=== PATIENT | male | born 1980 | race Caucasian/White ===

== ENCOUNTER 2022-12-09 11:10 | Outpatient (AMB) | payer BC, SELFPAY ==
[2022-12-09 11:18] VITALS: BP 126/78; PULSE 78; RESP 16; TEMP 36.9; O2SAT 97; BMI 30.7
--- NOTE | 2022-12-09 11:18 | MHC.PC.OV ---
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 Allergies No Known Allergies Allergy (Verified 12/09/22 11:52) Medication List - Last Reconciled 12/09/22 by Deann Wyman CNP No Known Home Meds Tobacco use date assessed: 12/09/22 Dental Screening Dental Screen Date: 12/09/22 Did you have a dental visit in the last 12 months?: Yes Did you have a dental problem in the last 6 months where you did not have access to dental care?: No Was dental information given to patient?: Patient has dentist HPI HPI Comments History of Present Illness Details 42-year-old male presents to [facility] care. He notes he was last evaluated by his former PCP 4 years ago. His last blood work was 8-9 years ago. He denies significant PMH He reports right knee pain since August. He notes that he was putting on his shoe when he suddenly experienced a burning sensation to his lateral right knee; the pain migrated to the patellar region. He was seen by [place] [facility] earlier this month, x-ray was negative, MRI was recommended, and he is awaiting MRI coverage approval from his health plan. He notes he was also evaluated for right shoulder pain. He reports intermittent non-itchy rash to his chest for the past 2 years; usually responsive to hydrocortisone cream. He notes that he drinks 5-6 beers or wine 5 days weekly. He has maintained this drinking habit for approximately 20 years. He notes he quit smoking cigarette 5-6 years ago. He notes he smoked 10 cigarette daily for 20 years. He notes he smokes and consume edible marijuana. 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 Surgical History (Updated 12/09/22 @ 11:27 by Sintia Jolly [facility]) History of surgical removal of pilonidal cyst Family History (Updated 12/09/22 @ 11:30 by Sintia Jolly CMA) Father FHx: total knee replacement History of hip replacement Maternal Grandmother Substance abuse Social History (Updated 12/09/22 @ 11:32 by Sintia Jolly CMA) Household Members: Spouse and Children Housing: House Alcohol intake: current Patient Tobacco Use Status: Former Tobacco user e-Cigarette/Vaping Use: Former Use Special zhanna needs: No service: No Current occupational status: employed 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 Vision needs: Yes (patient wears glasses) Questionnaire PHQ-9 Over the last 2 weeks, how often have you been bothered by any of the following problems? 1. Little interest or pleasure in doing things: not at all 2. Feeling down, depressed, or hopeless: not at all 3. Trouble falling or staying asleep, or sleeping too much: more than half the days 4. Feeling tired or having little energy: several days 5. Poor appetite or overeating: not at all 6. Feeling bad about yourself - or that you are a failure or have let yourself or your family down: not at all 7. Trouble concentrating on things, such as reading the newspaper or watching television: not at all 8. Moving or speaking so slowly that other people could have noticed. Or the opposite - being so fidgety or restless that you have been moving around a lot more than usual: not at all 9. Thoughts that you would be better off or of hurting yourself in some way: not at all Total score: 3 Depression Screening Interpretation: Negative Source: Developed by Drs. Charli Paz, Danette Lemon, Ramsey Thompson and colleagues, with an educational leti from [employer]. Thrive Questionnaire I am a: Patient What is your living situation today?: I have a steady place to live Within the past 12 months, did the food you bought not last and you didn't have the money to get more?: Never true Within the past 12 months, did you worry whether your food would run out before you got money to buy more?: Never true Do you have trouble paying for medicines?: No Do you have trouble getting transportation to medical appointments?: No Do you have trouble paying your heating and electricity bill?: No Do you have trouble taking care of your child, family member or friend?: No Do you have trouble with day-to-day activities such as bathing, preparing meals, shopping, managing finances, etc.?: No Are you currently unemployed and looking for a job?: No Are you interested in more education?: No AUDIT C Alcohol Use Questionnaire (AUDIT-C) 1. How often do you have a drink containing alcohol?: 4 or more times a week 2. How many drinks containing alcohol do you have on a typical day when you are drinking?: 5 or 6 3. How often do you have six or more drinks on one occasion?: Monthly Total Score: 8 Score Reviewed/Action Taken: Yes SASHA-7 AMB Questionnaire SASHA-7 Date SASHA - 7 assessed: 12/09/22 Feeling nervous, anxious, or on edge: 1 = Several days Not being able to stop or control worryin = Not at all Worrying too much about different things: 3 = Nearly every day Trouble relaxin = Not at all Being so restless that it is hard to sit still: 0 = Not at all Becoming easily annoyed or irritable: 0 = Not at all Feeling afraid as if something awful might happen: 0 = Not at all Total SASHA-7 score (0-4 normal; 5-9 mild; 10-14 moderate; 15-21 severe): 4 Source: Developed by Drs. Charli Paz, Danette Lemon, Ramsey Thompson and colleagues, with an educational leti from [employer]. Review of Systems Const Details: Denies chills, Denies fatigue, Denies fever(s), Denies headache(s) and Denies weakness HEENT Denies change in vision, Denies dizziness, Denies headache(s), Denies hearing loss, Denies nasal congestion, Denies sinus pain, Denies sinus pressure and Denies sore throat Card Denies chest pain, Denies lightheadedness, Denies dyspnea and Denies other (palpitations) Resp Denies cough, Denies dyspnea and Denies wheezing GI Denies abdominal pain, Denies melena, Denies hematochezia, Denies change in bowel habits, Denies dyspepsia and Denies nausea Denies hematuria and Denies dysuria Musc Reports right knee pain, Denies abnormal gait, Denies numbness and Denies tingling Skin/Breast Reports rash, Denies unusual bruising and Denies wounds Neuro Denies abnormal gait, Denies dizziness, Denies headache(s), Denies memory loss, Denies numbness, Denies Sensory deficit (Neuro), Denies tingling and Denies weakness Psych Denies anxiety, Denies depression and Denies memory loss Endo Denies cold intolerance, Denies fatigue, Denies heat intolerance, Denies polydipsia and Denies polyuria Dewayne/Lymph Denies easy bleeding and Denies easy bruising Aller/Immun Denies wheezing Physical exam (Primary Care) Vital Signs: Last Vital Signs Temp 98.4 F 12/09/22 11:18 Pulse 78 12/09/22 11:18 Resp 16 12/09/22 11:18 BP 126/78 12/09/22 11:18 Pulse Ox 97 12/09/22 11:18 Oxygen Delivery Method Room Air 12/09/22 11:18 BMI result Body Mass Index 30.7 Tobacco/Smoking Status: Tobacco use Status Tobacco use date assessed 12/09/22 12/09/22 11:43 Patient Tobacco Use Status Former Tobacco user 12/09/22 11:43 e-Cigarette/Vaping Use Former Use 12/09/22 11:43 PHQ-9: PHQ-9 Score PHQ-9: Total score 3 12/09/22 12:07 Depression Screening Interpretation: Negative Const Other: General: no acute distress, well developed, alert and awake Nutritional Appearance: well nourished Orientation/consciousness: patient oriented x3 HENMT Head: Yes normocephalic and Yes atraumatic Ears: hearing grossly normal bilaterally and TM's normal bilaterally General nose exam: Normal external nose present and Normal nares present Mouth: Normal oral and palatal mucosa present and moist mucous membranes Teeth and gingiva: dentition normal Throat: Yes oropharynx normal Eyes Pupils: Equal, round and reactive pupils present and Pupil accommodation reflex normal EOM: EOMs intact bilaterally Neck Neck: Yes normal visual inspection, Yes no lymphadenopathy and Yes trachea midline Thyroid: Thyroid normal Carotids: no bruits Lymphatic: no lymphadenopathy noted Chest Chest palpation & inspection: normal inspection of the chest Resp Effort & Inspection: normal respiratory effort Auscultation: clear to auscultation bilaterally Cardio Rate: regular rate Rhythm: regular rhythm Heart sounds: S1 normal heart sound present, S2 normal heart sound present, no gallops, no murmurs and no rubs Bruits: no abdominal aortic bruits and no carotid bruits GI Palpation (GI): No Abdominal aortic bruit present, Soft to palpation, nontender, No hepatosplenomegaly present and No Rebound tenderness present Auscultation: normal bowel sounds General: Yes no CVA tenderness Back/Spine/Pelvis Back: no CVA tenderness Cervical Spine: cervical ROM normal and No Cervical spine tenderness Thoracic/Lumbar Spine: thoraco-lumbar ROM normal, No pain with thoraco-lumbar ROM, No thoracic spinal tenderness and No lumbar spinal tenderness Skin General: warm and dry. Normal skin color. Normal skin turgor Lesions: no lesions Rashes: Localized, macular rash noted to the sternum Trauma: no lacerations or abrasions Wounds: no wounds Nails: normal Neuro General: patient oriented x3, gait normal and CN's II-XI intact bilaterally Cranial nerves: Yes Equal, round and reactive pupils present Cognition (Neuro): normal cognition Gait exam (Neuro): Normal gait present Motor exam (neuro): 5/5 motor strength present throughout Sensory Exam: No Sensory deficit (Neuro) Deep tendon reflexes (DTR's): Right patellar reflex intensity grade: 2+ and Left patellar reflex intensity grade: 2+ Extrem General: Yes normal to inspection, No edema and No calf tenderness No erythema, edema, or overt trauma to the right knee Psych Appearance: grossly normal Affect: normal affect Attitude: cooperative Thought process: Normal thought process present Assessment and Plan Assessment & Plan (1) Normal physical examination, routine: Code(s): Z00.00 - Encounter for general adult medical examination without abnormal findings Plan: No significant physical restrictions or limitations noted Advised to get fasting blood work done before next visit Follow-up in 1 month for labs review Return sooner with new or worsening symptoms Verbalized understanding and agreed with treatment plan. (2) Right knee pain: Code(s): M25.561 - Pain in right knee Plan: He reports right knee pain since August. He notes that he was putting on his shoe when he suddenly experienced a burning sensation to his lateral right knee; the pain migrated to the patellar region. He was seen by [place] [facility] earlier this month, x-ray was negative, MRI was recommended by ortho, awaiting coverage from health plan. No erythema, edema, or overt trauma to the right knee Follow-up with orthopedics as planned Return with worsening or new symptoms Verbalized understanding and agreed with treatment plan. (3) Localized macular rash: Code(s): R21 - Rash and other nonspecific skin eruption Plan: He reports intermittent non-itchy rash to his chest for the past 2 years; usually responsive to hydrocortisone cream. Localized, macular rash noted to the sternum Continue to use hydrocortisone cream as needed Dermatology referral made Follow-up with worsening or new signs and symptoms Verbalized understanding and agreed with treatment plan. (4) Alcohol dependence: Code(s): F10.20 - Alcohol dependence, uncomplicated Plan: He notes that he drinks 5-6 beers or wine 5 days weekly. He has maintained this drinking habit for approximately 20 years. Instructed on the health risk of excessive alcohol consumption and advised to limit or avoid alcohol intake. Declined referral to addiction medicine He notes he intends to limit his alcohol intake Advised to inform his PCP if he changes his mind on addiction medicine referral Verbalized understanding and agreed with treatment plan. (5) Laboratory tests ordered as part of a complete physical exam (CPE): Code(s): Z00.00 - Encounter for general adult medical examination without abnormal findings Plan: Fasting labs ordered as part of a complete physical exam. Advised to fast for at least 10 hours before getting labs drawn. May drink water Verbalized understanding and agreed with treatment plan. Orders: Orders Comprehensive [facility]. Panel Fast Today Z00.00 - Encounter for general adult medical examination without abnormal findings Lipid Panel Today Z00.00 - Encounter for general adult medical examination without abnormal findings TSH reflex Free T4 Today Z00.00 - Encounter for general adult medical examination without abnormal findings Complete Blood Count Auto Diff Today Z00.00 - Encounter for general adult medical examination without abnormal findings UA CC w/rflx Micro + Cult Today Z00.00 - Encounter for general adult medical examination without abnormal findings Referrals Dermatology Referral R21 - Rash and other nonspecific skin eruption Coding Level of Care Code New Pt Prev Care 40-64y(47630) Diagnoses Normal physical examination, routine Z00.00 Right knee pain M25.561 Localized macular rash R21 Alcohol dependence F10.20 Laboratory tests ordered as part of a complete physical exam (CPE) Z00.00
== END 2022-12-09 12:20 | disposition home or self-care (01) ==
PROVIDERS: PCP Nurse Practitioner Family; Visit Provider Nurse Practitioner Family
DX: Z00.00 Encounter for general adult medical examination without abnormal findings (principal); M25.561 Pain in right knee; R21 Rash and other nonspecific skin eruption; F10.20 Alcohol dependence, uncomplicated
CPT/HCPCS: 99386

== ENCOUNTER 2022-12-31 14:57 | Outpatient (AMB) | payer BC, SELFPAY ==
[2022-12-31 15:02] VITALS: BP 138/76; PULSE 83; RESP 12; TEMP 36.4; O2SAT 99; BMI 31.4
--- NOTE | 2022-12-31 15:02 | A.OFFPC_ITS ---
Vital Signs 12/31/22 15:02 Height 5 ft 10.5 in Weight 222 lb 4 oz BMI 31.4 BP 138/76 Blood Pressure Location Lt brachial Position Sitting Respiration 12 Pulse 83 Pulse Source Pulse Oximeter Temp 97.5 F Temp Source Temporal Artery Scan Pulse Oximetry (%) 99 Oxygen Delivery Method Room Air Intake Visit Reasons: fever nausea Intake Note: Patient states he no longer has a fever as of Tuesday. Patient states he feels a bit better than he did tue-tue. Patient states that he thought yesterday that he had gastroenteritis and would like that confirmed. Patient states that he would also like to know if he is contagious. 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 Accompanied by: Self / Same As Patient Allergies No Known Allergies Allergy (Verified 12/31/22 15:13) Medication List - Last Reconciled 12/31/22 by Deann Wyman CNP No Known Home Meds Tobacco use date assessed: 12/09/22 Dental Screening Dental Screen Date: 12/31/22 Did you have a dental visit in the last 12 months?: Yes Did you have a dental problem in the last 6 months where you did not have access to dental care?: No Was dental information given to patient?: Patient has dentist HPI HPI Comments History of Present Illness Details 42 y/o male presents with complaints of low-grade fever, nausea, v omiting x 1, diarrhea, and generalized abdominal discomfort. He endorses some fatigue. He notes the fever completed subsided 3 days ago. No body aches, chills. 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 Cognitive needs: No Hearing needs: No Vision needs: Yes (patient wears glasses) Questionnaire SASHA-7 AMB Questionnaire SASHA-7 Date SASHA - 7 assessed: 12/09/22 Source: Developed by Drs. Charli Paz, Danette Lemon, Ramsey Thompson and colleagues, with an educational leti from [employer]. Review of Systems Const Details: Const Denies chills, Reports fatigue, Denies fever(s), Denies headache(s) and Denies weakness ENT Denies dizziness and Denies headache(s) Card Denies chest pain, Denies lightheadedness, Denies dyspnea and Denies other (Palpitations) Resp Denies cough, Denies dyspnea, Denies wheezing and Denies other ( shortness of breath) GI Denies abdominal pain, Denies melena, Denies hematochezia, Denies change in bowel habits, Denies dyspepsia and Denies nausea Denies hematuria and Denies dysuria Musc Denies abnormal gait, Denies myalgias, Denies arthralgias, Denies numbness and Denies tingling Skin/Breast Denies rash, Denies unusual bruising and Denies wounds Neuro Denies abnormal gait, Denies dizziness, Denies headache(s), Denies memory loss, Denies numbness, Denies Sensory deficit (Neuro), Denies tingling and Denies weakness Psych Denies anxiety, Denies depression, Denies memory loss Endo Denies cold intolerance, Reports fatigue, Denies heat intolerance, Denies polydipsia and Denies polyuria Aller/Immun Denies wheezing Physical exam (Primary Care) Vital Signs: Last Vital Signs Temp 97.5 F 12/31/22 15:02 Pulse 83 12/31/22 15:02 Resp 12 12/31/22 15:02 BP 138/76 12/31/22 15:02 Pulse Ox 99 12/31/22 15:02 Oxygen Delivery Method Room Air 12/31/22 15:02 BMI result Body Mass Index 31.4 Tobacco/Smoking Status: Tobacco use Status Tobacco use date assessed 12/09/22 12/31/22 15:06 Patient Tobacco Use Status Former Tobacco user 12/31/22 15:06 e-Cigarette/Vaping Use Former Use 12/31/22 15:06 Const Other: General: no acute distress and well developed Nutritional Appearance: well nourished Orientation/consciousness: patient oriented x3 [facility] Head: Yes normocephalic and Yes atraumatic Eyes General: appearance normal, both eyes and all related structures Pupils: Equal, round and reactive pupils present EOM: EOMs intact bilaterally Resp Effort & Inspection: normal respiratory effort Auscultation: clear to auscultation bilaterally Cardio Rate: regular rate Rhythm: regular rhythm Heart sounds: S1 normal heart sound present, S2 normal heart sound present, no gallops, no murmurs and no rubs GI Palpation (GI): No Abdominal aortic bruit present, Soft to palpation, nontender, No hepatosplenomegaly present and No Rebound tenderness present Auscultation: normal bowel sounds General: Yes no CVA tenderness Back/Spine/Pelvis Back: no CVA tenderness Cervical Spine: cervical ROM normal and No Cervical spine tenderness Thoracic/Lumbar Spine: thoraco-lumbar ROM normal, No pain with thoraco-lumbar ROM, No thoracic spinal tenderness and No lumbar spinal tenderness Extrem General: Yes normal to inspection, No edema and No calf tenderness Skin General: warm and dry. Normal skin color. Normal skin turgor Lesions: no lesions Rashes: no rashes Trauma: no lacerations or abrasions Wounds: no wounds Nails: normal Neuro General: patient oriented x3, gait normal and no focal neuro deficit Cranial nerves: Yes Equal, round and reactive pupils present Cognition (Neuro): normal cognition Gait exam (Neuro): Normal gait present Sensory Exam: No Sensory deficit (Neuro) Psych Appearance: grossly normal Affect: normal affect Attitude: cooperative Thought process: Normal thought process present Assessment and Plan Assessment & Plan (1) GI symptoms: Code(s): R19.8 - Other specified symptoms and signs involving the digestive system and abdomen Plan: Nausea, vomiting, diarrhea, and fever have completely subsided. He reports some fatigue He may have had viral gastroenteritis although bacterial gastroenteritis and food poisoning also likely Adequate hydration and rest encouraged Return with new or worsening symptoms Verbalized understanding and agreed with the treatment plan. Coding Level of Care Code Est Pt Level 2 (14733) Diagnoses GI symptoms R19.8
== END 2022-12-31 15:29 | disposition home or self-care (01) ==
PROVIDERS: PCP Nurse Practitioner Family; Visit Provider Nurse Practitioner Family
DX: R19.8 Other specified symptoms and signs involving the digestive system and abdomen (principal)
CPT/HCPCS: 99212

== ENCOUNTER 2023-01-04 07:06 | Outpatient (REF) | payer BC, SELFPAY ==
[2023-01-04 11:13] LABS: MANUAL DIFF FLAG NO
[2023-01-04 11:42] LABS: Basophils Percent Auto 0.5 % (0-2); Eosinophils Absolute Auto 0.2 X10*3/uL (0.0-0.4); Hematocrit 43.9 % (42.0-52.0); Hemoglobin 15.3 g/dl (14.0-18.0); Imm Gran Abs Auto 0.01 X10*3/uL (0.00-0.03); Imm Gran Pct Auto 0.2 % (0.0-0.4); Lymphocytes Percent Auto 33.7 % (20-40); Mean Corpuscular HGB Conc 34.9 g/dl (31.0-36.0); Mean Corpuscular Hemoglobin 31.1 pg (27.0-33.0); Mean Corpuscular Volume 89.2 fL (80.0-98.0); Mean Platelet Volume 10.4 fL (9.4-12.4); Monocytes Absolute Auto 0.4 X10*3/uL (0.1-1.2); Monocytes Percent Auto 6.9 % (2-11); Neutrophils Absolute Auto 3.4 x10*3/uL (2.0-8.3); Neutrophils Percent Auto 55.7 % (45-73); Platelet Count 177 X10*3/uL (160-400); Red Blood Count 4.92 X10*6/uL (4.60-5.80); Red Cell Distribution Width 12.1 % (11.0-16.0); White Blood Count 6.1 X10*3/uL (4.8-10.8)
[2023-01-04 11:56] LABS: Appearance Urine Clear; Color Urine Yellow; Glucose Urine UA Negative (Negative); Leukocyte Esterase Urine Negative (Negative); Nitrite Urine Negative (Negative); Specific Gravity - Urine <= 1.005 (1.005-1.025); Urine Blood Negative (Negative); Urine Ketones Negative (Negative); Urine Protein Negative (Neg-Trace)
[2023-01-04 12:04] LABS: Alanine Aminotransferase 61 U/L (0-40); Albumin Level 4.6 g/dL (3.5-5.0); Alkaline Phosphatase 69 U/L (39-117); Anion Gap 14 (12-20); Aspartate Amino Transferase 41 U/L (5-37); Bilirubin Total 0.8 mg/dL (0.0-1.0); Blood Urea Nitrogen 10 mg/dL (9-16); Calcium 9.7 mg/dL (8.4-10.2); Carbon Dioxide 28 mmol/L (22-29); Chloride 102 mmol/L (96-108); Cholesterol 179 mg/dL (<200); Estimated Glomerular Filt Rate > 60; Glucose Fasting 103 mg/dL (60-99); HDL Cholesterol 68 mg/dL (>40); LDL Cholesterol Calculated 90 mg/dL (<100); Potassium 4.2 mmol/L (3.3-5.1); Sodium 140 mmol/L (135-145); Total Protein 7.6 g/dL (6.5-8.0); Triglycerides 109 mg/dL (<150)
[2023-01-04 12:07] LABS: TSH reflex Free T4 2.11 uIU/mL (0.32-4.0)
== END 2023-01-04 07:07 | disposition home or self-care (01) ==
LOC: HO.WFDLDS 07:06
PROVIDERS: Visit Provider Nurse Practitioner Family
DX: Z00.00 Encounter for general adult medical examination without abnormal findings (principal)
CPT/HCPCS: 36415; 80053; 80061; 81003; 84443; 85025

== ENCOUNTER 2023-01-07 12:22 | Outpatient (AMB) | payer BC, SELFPAY ==
[2023-01-07 12:24] VITALS: BP 128/78; PULSE 83; RESP 12; TEMP 36.9; O2SAT 98; BMI 30.9
--- NOTE | 2023-01-07 12:24 | MHC.PC.OV ---
Vital Signs 01/07/23 12:24 Height 5 ft 10.5 in Weight 218 lb 8 oz BMI 30.9 BP 128/78 Blood Pressure Location Lt brachial Position Sitting Respiration 12 Pulse 83 Pulse Source Pulse Oximeter Temp 98.5 F Temp Source Oral Pulse Oximetry (%) 98 Oxygen Delivery Method Room Air Intake Visit Reasons: 1 mos labs review Intake Note: Patient is here today for lab review. Allergies No Known Allergies Allergy (Verified 01/07/23 12:41) Medication List - Last Reconciled 01/07/23 by Deann Wyman CNP No Known Home Meds Tobacco use date assessed: 01/07/23 HPI HPI Comments History of Present Illness Details 42-year-old male presents for review of recent lab results. He established care in November and had blood work done on 01/04/2023. Fasting glucose was elevated, 103, AST and ALT were elevated; 41 and 61 respectively. He offers no complaints and denies acute symptoms at this time. 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 Cognitive needs: No Hearing needs: No Vision needs: Yes (patient wears glasses) Questionnaire SASHA-7 AMB Questionnaire SASHA-7 Date SASHA - 7 assessed: 12/09/22 Source: Developed by Drs. Charli Paz, Danette Lemon, Ramsey Thompson and colleagues, with an educational leti from [employer] Review of Systems Const Details: Const Denies chills, Denies fatigue, Denies fever(s), Denies headache(s) and Denies weakness ENT Denies dizziness and Denies headache(s) Card Denies chest pain, Denies lightheadedness, Denies dyspnea and Denies other (Palpitations) Resp Denies cough, Denies dyspnea, Denies wheezing and Denies other ( shortness of breath) GI Denies abdominal pain, Denies melena, Denies hematochezia, Denies change in bowel habits, Denies dyspepsia and Denies nausea Denies hematuria and Denies dysuria Musc Denies abnormal gait, Denies myalgias, Denies arthralgias, Denies numbness and Denies tingling Skin/Breast Denies rash, Denies unusual bruising and Denies wounds Neuro Denies abnormal gait, Denies dizziness, Denies headache(s), Denies memory loss, Denies numbness, Denies Sensory deficit (Neuro), Denies tingling and Denies weakness Psych Denies anxiety, Denies depression, Denies memory loss Endo Denies cold intolerance, Denies fatigue, Denies heat intolerance, Denies polydipsia and Denies polyuria Aller/Immun Denies wheezing Physical exam (Primary Care) Vital Signs: Last Vital Signs Temp 98.5 F 01/07/23 12:24 Pulse 83 01/07/23 12:24 Resp 12 01/07/23 12:24 BP 128/78 01/07/23 12:24 Pulse Ox 98 01/07/23 12:24 Oxygen Delivery Method Room Air 01/07/23 12:24 BMI result Body Mass Index 30.9 Tobacco/Smoking Status: Tobacco use Status Tobacco use date assessed 01/07/23 01/07/23 12:28 Patient Tobacco Use Status Former Tobacco user 01/07/23 12:28 e-Cigarette/Vaping Use Former Use 01/07/23 12:28 Const Other: General: no acute distress and well developed Nutritional Appearance: well nourished Orientation/consciousness: patient oriented x3 HENMT Head: Yes normocephalic and Yes atraumatic Eyes General: appearance normal, both eyes and all related structures Pupils: Equal, round and reactive pupils present EOM: EOMs intact bilaterally Resp Effort & Inspection: normal respiratory effort Auscultation: clear to auscultation bilaterally Cardio Rate: regular rate Rhythm: regular rhythm Heart sounds: S1 normal heart sound present, S2 normal heart sound present, no gallops, no murmurs and no rubs GI Palpation (GI): No Abdominal aortic bruit present, Soft to palpation, nontender, No hepatosplenomegaly present and No Rebound tenderness present Auscultation: normal bowel sounds General: Yes no CVA tenderness Back/Spine/Pelvis Back: no CVA tenderness Cervical Spine: cervical ROM normal and No Cervical spine tenderness Thoracic/Lumbar Spine: thoraco-lumbar ROM normal, No pain with thoraco-lumbar ROM, No thoracic spinal tenderness and No lumbar spinal tenderness Extrem General: Yes normal to inspection, No edema and No calf tenderness Skin General: warm and dry. Normal skin color. Normal skin turgor Lesions: no lesions Rashes: no rashes Trauma: no lacerations or abrasions Wounds: no wounds Nails: normal Neuro General: patient oriented x3, gait normal and no focal neuro deficit Cranial nerves: Yes Equal, round and reactive pupils present Cognition (Neuro): normal cognition Gait exam (Neuro): Normal gait present Sensory Exam: No Sensory deficit (Neuro) Psych Appearance: grossly normal Affect: normal affect Attitude: cooperative Thought process: Normal thought process present Assessment and Plan Assessment & Plan (1) Elevated fasting glucose: Code(s): R73.01 - Impaired fasting glucose Plan: Recent fasting glucose was elevated, 103 Will repeat fasting glucose. Advised to fast for at least 10-12 hours before getting blood work done Will review lab results and make changes to his care plan if warranted Advised to schedule his next physical for next year Follow-up with symptoms or concerns Verbalized understanding and agreed with treatment plan. (2) Transaminitis: Code(s): R74.01 - Elevation of levels of liver transaminase levels Plan: AST and ALT were elevated; 41 and 61 respectively; likely due to significant alcohol consumption He notes he intends to reduce his alcohol consumption from 5-6 beers or wine 5 days weekly to 12 beers weekly Will repeat AST and ALT He notes he will get blood work done in 1-2 weeks after making adjustment with drinking Advised to inform his PCP if he changes his mind on referral to addiction medicine Follow-up with symptoms or concerns Verbalized understanding and agreed with treatment plan. Orders: Orders Liver Panel Today R74.01 - Elevation of levels of liver transaminase levels Glucose Fasting Today R73.01 - Impaired fasting glucose Coding Level of Care Code Est Pt Level 2 (63494) Diagnoses Elevated fasting glucose R73.01 Transaminitis R74.01
== END 2023-01-07 12:50 | disposition home or self-care (01) ==
PROVIDERS: PCP Nurse Practitioner Family; Visit Provider Nurse Practitioner Family
DX: R73.01 Impaired fasting glucose (principal); R74.01 Elevation of levels of liver transaminase levels
CPT/HCPCS: 99212

== ENCOUNTER 2023-02-09 07:48 | Outpatient (REF) | payer BC, SELFPAY ==
[2023-02-09 12:28] LABS: Alanine Aminotransferase 27 U/L (0-40); Albumin Level 4.6 g/dL (3.5-5.0); Alkaline Phosphatase 69 U/L (39-117); Aspartate Amino Transferase 20 U/L (5-37); Bilirubin Direct 0.2 mg/dL (0.0-0.5); Bilirubin Total 0.6 mg/dL (0.0-1.0); Glucose Fasting 96 mg/dL (60-99); Total Protein 7.2 g/dL (6.5-8.0)
== END 2023-02-09 07:49 | disposition home or self-care (01) ==
LOC: HO.WFDLDS 07:48
PROVIDERS: Visit Provider Nurse Practitioner Family
DX: R74.01 Elevation of levels of liver transaminase levels (principal); R73.01 Impaired fasting glucose
CPT/HCPCS: 36415; 80076; 82947

== ENCOUNTER 2024-01-26 07:59 | Outpatient (AMB) | payer OTHER, SELFPAY ==
--- NOTE | 2024-01-26 08:05 | A.OFFPC_ITS ---
Vital Signs 01/26/24 08:10 Height 5 ft 10 in Weight 219 lb 4 oz BMI 31.5 BP 112/70 Blood Pressure Location Rt brachial Position Sitting Respiration 16 Pulse 80 Pulse Source Pulse Oximeter Temp 98.2 F Temp Source Oral Pulse Oximetry (%) 98 Oxygen Delivery Method Room Air Intake Visit Reasons: CPE Intake Note: patient here for CPE. Chauffeur Required: No Allergies No Known Allergies Allergy (Verified 01/26/24 08:14) Medication List - Last Reconciled 01/26/24 by Deann Wyman CNP No Known Home Meds Tobacco use date assessed: 01/26/24 Dental Screening Dental Screen Date: 01/26/24 Did you have a dental visit in the last 12 months?: Yes Did you have a dental problem in the last 6 months where you did not have access to dental care?: No Was dental information given to patient?: Patient has dentist HPI HPI Comments History of Present Illness Details 43-year-old male presents for an extende d physical exam He has no significant past medical history He is not on prescription medications He admits to making healthy lifestyle changes, including diet. He has not been exercising routinely. He generally sleeps well He offers no complaints and denies acute symptoms at this time Former smoker, quit 6-7 years ago, smoked an average of 10 cigarettes daily x 20 years. History of vaping nicotine. Drinks 2-3 beers/cocktail twice on weekdays and 6-8 beers/cocktails once on weekends; he has been drinking more or less for almost 30 years. He uses edible THC Last eye exam was 2 years ago He has never had a colonoscopy Last tetanus vaccine was more than 10 years ago. 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 Current occupational exposures/hazards: No Cognitive needs: No Hearing needs: No Vision needs: Yes (patient wears glasses) Questionnaire PHQ-9 Over the last 2 weeks, how often have you been bothered by any of the following problems? 1. Little interest or pleasure in doing things: several days 2. Feeling down, depressed, or hopeless: not at all 3. Trouble falling or staying asleep, or sleeping too much: several days 4. Feeling tired or having little energy: several days 5. Poor appetite or overeating: several days 6. Feeling bad about yourself - or that you are a failure or have let yourself or your family down: several days 7. Trouble concentrating on things, such as reading the newspaper or watching television: not at all 8. Moving or speaking so slowly that other people could have noticed. Or the opposite - being so fidgety or restless that you have been moving around a lot more than usual: not at all 9. Thoughts that you would be better off or of hurting yourself in some way: not at all Total score: 5 23196 - PHQ-9 Billing: Yes Source: Developed by Drs. Charli Paz, Danette Lemon, Ramsey Thompson and colleagues, with an educational leti from [email or web address]. Thrive Questionnaire Date Thrive assessed: 01/26/24 I am a: Patient What is your living situation today?: I have a steady place to live Within the past 12 months, did the food you bought not last and you didn't have the money to get more?: Never true Within the past 12 months, did you worry whether your food would run out before you got money to buy more?: Never true Do you have trouble paying for medicines?: No Do you have trouble getting transportation to medical appointments?: No Do you have trouble paying your heating and electricity bill?: No Do you have trouble taking care of your child, family member or friend?: No Do you have trouble with day-to-day activities such as bathing, preparing meals, shopping, managing finances, etc.?: No Are you currently unemployed and looking for a job?: No Are you interested in more education?: No Please select the resources that you would like help with: None Currently or been in a relationship where the following occur: No concerns reported THRIVE Score: 0 AUDIT C Alcohol Use Questionnaire (AUDIT-C) 1. How often do you have a drink containing alcohol?: 2-3 times a week 2. How many drinks containing alcohol do you have on a typical day when you are drinking?: 5 or 6 3. How often do you have six or more drinks on one occasion?: Weekly Total Score: 8 SASHA-7 AMB Questionnaire SASHA-7 Date SASHA - 7 assessed: 01/26/24 Feeling nervous, anxious, or on edge: 1 = Several days Not being able to stop or control worryin = Several days Worrying too much about different things: 0 = Not at all Trouble relaxin = Not at all Being so restless that it is hard to sit still: 0 = Not at all Becoming easily annoyed or irritable: 1 = Several days Feeling afraid as if something awful might happen: 0 = Not at all Total SASHA-7 score (0-4 normal; 5-9 mild; 10-14 moderate; 15-21 severe): 3 Source: Developed by Drs. Charil Paz, Danette Lemon, Ramsey Thompson and colleagues, with an educational leti from [email or web address]. SASHA-7 Assessment Billing SASHA-7 Assessment Tool: SASHA-7 Assessment 22749 Review of Systems Const Details: Denies chills, Denies fatigue, Denies fever(s), Denies headache(s) and Denies weakness HEENT Denies change in vision, Denies dizziness, Denies headache(s), Denies hearing loss, Denies nasal congestion, Denies sinus pain, Denies sinus pressure and De nies sore throat Card Denies chest pain, Denies lightheadedness, Denies dyspnea and Denies other (palpitations) Resp Denies cough, Denies dyspnea and Denies wheezing GI Denies abdominal pain, Denies melena, Denies hematochezia, Denies change in bowel habits, Denies dyspepsia and Denies nausea Denies hematuria and Denies dysuria Musc Denies abnormal gait, Denies myalgias, Denies arthralgias, Denies numbness and Denies tingling Skin/Breast Denies rash, Denies unusual bruising and Denies wounds Neuro Denies abnormal gait, Denies dizziness, Denies headache(s), Denies memory loss, Denies numbness, Denies Sensory deficit (Neuro), Denies tingling and Denies weakness Psych Denies anxiety, Denies depression and Denies memory loss Endo Denies cold intolerance, Denies fatigue, Denies heat intolerance, Denies polydipsia and Denies polyuria Dewayne/Lymph Denies easy bleeding and Denies easy bruising Aller/Immun Denies wheezing Physical exam (Primary Care) Vital Signs: Last Vital Signs Temp 98.2 F 01/26/24 08:10 Pulse 80 01/26/24 08:10 Resp 16 01/26/24 08:10 BP 112/70 01/26/24 08:10 Pulse Ox 98 01/26/24 08:10 Oxygen Delivery Method Room Air 01/26/24 08:10 BMI result Body Mass Index 31.5 Tobacco/Smoking Status: Tobacco use Status Tobacco use date assessed 01/26/24 01/26/24 08:09 Patient Tobacco Use Status Former Tobacco user 01/26/24 08:07 e-Cigarette/Vaping Use Former Use 01/26/24 08:07 PHQ-9: PHQ-9 Score PHQ-9: Total score 5 01/26/24 08:43 Thrive Assessment: Date of Thrive Assessment Date Thrive assessed 01/26/24 01/26/24 08:15 Currently or been in a relationship where the following occur: No concerns reported Const Other: General: no acute distress, well developed, alert and awake Nutritional Appearance: well nourished Orientation/consciousness: patient oriented x3 HENMT Head: Yes normocephalic and Yes atraumatic Ears: hearing grossly normal bilaterally and TM's normal bilaterally General nose exam: Normal external nose present and Normal nares present Mouth: Normal oral and palatal mucosa present and moist mucous membranes Teeth and gingiva: dentition normal Throat: Yes oropharynx normal Eyes Pupils: Equal, round and reactive pupils present and Pupil accommodation reflex normal EOM: EOMs intact bilaterally Neck Neck: Yes normal visual inspection, Yes no lymphadenopathy and Yes trachea midline Thyroid: Thyroid normal Carotids: no bruits Lymphatic: no lymphadenopathy noted Chest Chest palpation & inspection: normal inspection of the chest Resp Effort & Inspection: normal respiratory effort Auscultation: clear to auscultation bilaterally Cardio Rate: regular rate Rhythm: regular rhythm Heart sounds: S1 normal heart sound present, S2 normal heart sound present, no gallops, no murmurs and no rubs Bruits: no abdominal aortic bruits and no carotid bruits GI Palpation (GI): No Abdominal aortic bruit present, Soft to palpation, nontender, No hepatosplenomegaly present and No Rebound tenderness present Auscultation: normal bowel sounds General: Yes no CVA tenderness Back/Spine/Pelvis Back: no CVA tenderness Cervical Spine: cervical ROM normal and No Cervical spine tenderness Thoracic/Lumbar Spine: thoraco-lumbar ROM normal, No pain with thoraco-lumbar ROM, No thoracic spinal tenderness and No lumbar spinal tenderness Skin General: warm and dry. Normal skin color. Normal skin turgor Lesions: no lesions Rashes: no rashes Trauma: no lacerations or abrasions Wounds: no wounds Nails: normal Neuro General: patient oriented x3, gait normal and CN's II-XI intact bilaterally Cranial nerves: Yes Equal, round and reactive pupils present Cognition (Neuro): normal cognition Gait exam (Neuro): Normal gait present Motor exam (neuro): 5/5 motor strength present throughout Sensory Exam: No Sensory deficit (Neuro) Deep tendon reflexes (DTR's): Right patellar reflex intensity grade: 2+ and Left patellar reflex intensity grade: 2+ Extrem General: Yes normal to inspection, No edema and No calf tenderness Psych Appearance: grossly normal Affect: normal affect Attitude: cooperative Thought process: Normal thought process present Office Procedures Flu Questionnaire Does the patient have a severe egg allergy?: No Does the patient have severe life threatening allergies?: No Does the patient have a fever or illness today?: No Has the patient ever had Guillain-Blair Syndrome?: No Has the patient ever had any past reaction to a flu shot?: No Immunizations Fluarix Triv [id number] (PF) 45 mcg (15 mcg x 3)/0.5 mL IM syringe Performing Provider: Deann Wyman CNP Performing Location: [facility] Administered by: Clotilde Severino RN on 01/26/24 08:40 Dose Route Admin Location Dispensed Lot Number Expiration Date [facility]reavement Program Coordinator 0.5 mL IM Right Deltoid 0.5 mL [id number] 10/15/24 [id number] GLAXOSMITHKLINE VIS Given Date VIS Provided VIS Publication Date 01/26/24 Single Vaccine 20 Eligibility Eligibility Date Funding Source Not [facility] Eligible 01/26/24 Private Administration Comments: Patient received two vaccines today, both in the right deltoid muscle, flu shot above and TDaP below. Boostrix Tdap 2.5 Lf unit-8 mcg-5 Lf/0.5 mL intramuscular syringe Performing Provider: Deann Wyman CNP Performing Location: [facility] Administered by: Clotilde Severino RN on 01/26/24 08:40 Dose Route Admin Location Dispensed Lot Number Expiration Date [facility] Bereavement Program Coordinator 0.5 mL IM Right Deltoid 0.5 mL [id number] 01/13/25 [id number] [employer] [place] VIS Given Date VIS Provided VIS Publication Date 01/26/24 Single Vaccine 20 Eligibility Eligibility Date Funding Source Not [facility] Eligible 01/26/24 Private Administration Comments: Patient received two vaccines today, both in the right deltoid muscle, flu shot above and TDaP below. Coding Level of Care Code Est Pt Prev Care 40-64y(09663) Diagnoses Normal physical examination, routine Z00.00 Routine eye exam Z01.00 Obesity (BMI 30.0-34.9) E66.811 Colon cancer screening Z12.11 Vaccine for tetanus toxoid Z23 Flu vaccine need Z23 Laboratory tests ordered as part of a complete physical exam (CPE) Z00.00 Additional Codes SASHA-7 Assessment Billing - SASHA-7 Assessment Tool: SASHA-7 Assessment 98887 ([id number]) Assessment & Plan Assessment & Plan (1) Normal physical examination, routine: Code(s): Z00.00 - Encounter for general adult medical examination without abnormal findings Category: Medical Plan: No significant physical restrictions limitations noted Healthy diet and routine exercise encouraged Encouraged to cut back on alcohol intake to no more than 7 drinks a week Advised to get lab work done and follow-up in 2-3 weeks for a telehealth visit for labs review or sooner with symptoms or concerns Verbalized understanding and agreed with the treatment plan (2) Routine eye exam: Code(s): Z01.00 - Encounter for examination of eyes and vision without abnormal findings Category: Medical Plan: Last eye exam was 2 years ago Referred to Ophthalmology for routine eye exam (3) Obesity (BMI 30.0-34.9): Code(s): E66.811 - Obesity, class 1 Category: Medical Plan: He currently weighs 219 lb, BMI is 31.5 Healthy diet routine exercise encouraged May referred to dietitian or weight management as needed Verbalized understanding and agreed with the plan (4) Colon cancer screening: Code(s): Z12.11 - Encounter for screening for malignant neoplasm of colon Category: Medical Plan: He has never had a colonoscopy Referred to [facility] gastroenterology for a colonoscopy (5) Vaccine for tetanus toxoid: Code(s): Z23 - Encounter for immunization Category: Medical Plan: His last tetanus vaccine was over 10 years ago Tetanus vaccine administered today by our nurse (6) Flu vaccine need: Code(s): Z23 - Encounter for immunization Category: Medical Plan: He has not been vaccinated for the flu this season Flu vaccine administered today by our nurse (7) Laboratory tests ordered as part of a complete physical exam (CPE): Code(s): Z00.00 - Encounter for general adult medical examination without abnormal findings Category: Medical Plan: Fasting labs ordered as part of a complete physical exam. Advised to fast for at least 10 hours before getting labs drawn. May drink water Verbalized understanding and agreed with treatment plan. Orders: Orders Complete Blood Count Auto Diff Today Z00.00 - Encounter for general adult medic al examination without abnormal findings Lipid Panel Today Z00.00 - Encounter for general adult medical examination without abnormal findings TSH reflex Free T4 Today Z00.00 - Encounter for general adult medical examination without abnormal findings Influenza [id number] Immunization Today Z23 - Encounter for immunization Comprehensive [place]. Panel Fast Today Z00.00 - Encounter for general adult medical examination without abnormal findings UA CC w/rflx Micro + Cult Today Z00.00 - Encounter for general adult medical examination without abnormal findings Microalbumin, Random (w Creat) Today Z00.00 - Encounter for general adult medical examination without abnormal findings TDaP Immunization Today Z23 - Encounter for immunization PSA, Ultra Sensitive Today Z00.00 - Encounter for general adult medical examination without abnormal findings Referrals Ophthalmology Referral Z01.00 - Encounter for examination of eyes and vision without abnormal findings Gastroenterology Referral Z12.11 - Encounter for screening for malignant neoplasm of colon
[2024-01-26 08:10] VITALS: BP 112/70; PULSE 80; RESP 16; TEMP 36.8; O2SAT 98; BMI 31.5
== END 2024-01-26 09:08 | disposition home or self-care (01) ==
PROVIDERS: PCP Nurse Practitioner Family; Visit Provider Nurse Practitioner Family
DX: Z00.00 Encounter for general adult medical examination without abnormal findings (principal); E66.811 Obesity, class 1; Z12.11 Encounter for screening for malignant neoplasm of colon; Z68.31 Body mass index [BMI] 31.0-31.9, adult; Z23 Encounter for immunization

== ENCOUNTER → 2024-01-26 07:59 | Outpatient (BNVA) | payer OTHER, SELFPAY | PROVIDERS: PCP Nurse Practitioner Family; Visit Provider Nurse Practitioner Family | DX: Z00.00 Encounter for general adult medical examination without abnormal findings (principal); E66.811 Obesity, class 1; Z68.31 Body mass index [BMI] 31.0-31.9, adult; Z23 Encounter for immunization | CPT/HCPCS: 90471; 90472; 90656; 90715; 96127 ==

== ENCOUNTER 2024-02-10 07:34 | Outpatient (REF) | payer OTHER, SELFPAY ==
[2024-02-10 11:09] LABS: MANUAL DIFF FLAG NO
[2024-02-10 11:22] LABS: Basophils Percent Auto 0.6 % (0-2); Eosinophils Absolute Auto 0.2 X10*3/uL (0.0-0.4); Imm Gran Abs Auto 0.02 X10*3/uL (0.00-0.03); Imm Gran Pct Auto 0.3 % (0.0-0.4); Lymphocytes Absolute Auto 2.3 X10*3/uL (1.2-4.9); Lymphocytes Percent Auto 35.1 % (20-40); Mean Corpuscular HGB Conc 34.9 g/dl (31.0-36.0); Mean Corpuscular Hemoglobin 30.5 pg (27.0-33.0); Mean Corpuscular Volume 87.6 fL (80.0-98.0); Mean Platelet Volume 10.7 fL (9.4-12.4); Monocytes Absolute Auto 0.5 X10*3/uL (0.1-1.2); Monocytes Percent Auto 7.7 % (2-11); Neutrophils Absolute Auto 3.5 x10*3/uL (2.0-8.3); Neutrophils Percent Auto 53.3 % (45-73); Platelet Count 204 X10*3/uL (160-400); Red Blood Count 4.91 X10*6/uL (4.60-5.80); Red Cell Distribution Width 11.9 % (11.0-16.0); White Blood Count 6.6 X10*3/uL (4.8-10.8)
[2024-02-10 11:32] LABS: Appearance Urine Clear; Color Urine Yellow; Glucose Urine UA Negative (Negative); Leukocyte Esterase Urine Negative (Negative); Nitrite Urine Negative (Negative); PH 7.5 (5.0-9.0); Urine Blood Negative (Negative); Urine Ketones Negative (Negative); Urine Protein Negative (Neg-Trace)
[2024-02-10 11:37] LABS: Alanine Aminotransferase 25 U/L (0-40); Albumin Level 4.4 g/dL (3.5-5.0); Alkaline Phosphatase 68 U/L (39-117); Anion Gap 11 (12-20); Aspartate Amino Transferase 29 U/L (5-37); Bilirubin Total 0.6 mg/dL (0.0-1.0); Blood Urea Nitrogen 8 mg/dL (9-16); Calcium 9.5 mg/dL (8.4-10.2); Carbon Dioxide 27 mmol/L (22-29); Chloride 103 mmol/L (96-108); Cholesterol 152 mg/dL (<200); Estimated Glomerular Filt Rate > 60; Glucose Fasting 94 mg/dL (60-99); HDL Cholesterol 52 mg/dL (>40); LDL Cholesterol Calculated 80 mg/dL (<100); Potassium 4.1 mmol/L (3.3-5.1); Sodium 137 mmol/L (135-145); Total Protein 6.9 g/dL (6.5-8.0); Triglycerides 100 mg/dL (<150)
[2024-02-10 11:54] LABS: TSH reflex Free T4 1.95 uIU/mL (0.32-4.0)
[2024-02-10 12:45] LABS: Creatinine Urine 68.33 mg/dL; Microalbumin Urine < 5.0 mg/L
[2024-02-17 01:03] LABS: PSA, Ultra Sensitive 0.44 ng/mL
== END 2024-02-10 07:35 | disposition home or self-care (01) ==
LOC: HO.WFDLDS 07:34
PROVIDERS: Visit Provider Nurse Practitioner Family
DX: Z00.00 Encounter for general adult medical examination without abnormal findings (principal); Z12.5 Encounter for screening for malignant neoplasm of prostate
CPT/HCPCS: 36415; 80053; 80061; 81003; 82043; 82570; 84153; 84443; 85025

== ENCOUNTER 2024-04-16 09:50 | Outpatient (REF) | payer OTHER, SELFPAY ==
[2024-04-16 16:08] LABS: Influenza A PCR NEGATIVE (Negative); Influenza B PCR NEGATIVE (Negative); Resp Syncy Virus RNA Qual PCR NEGATIVE (Negative); SARS COV2 PCR INHOUSE NEGATIVE (Negative)
== END 2024-04-16 09:51 | disposition home or self-care (01) ==
LOC: HO.LAB 09:50
PROVIDERS: PCP Nurse Practitioner Family; Visit Provider Registered Nurse
DX: J06.9 Acute upper respiratory infection, unspecified (principal); Z11.52 Encounter for screening for COVID-19
CPT/HCPCS: 0241U; 87880

== ENCOUNTER 2024-04-16 09:50 | Outpatient (AMB) | payer OTHER, SELFPAY ==
--- NOTE | 2024-04-16 10:42 | MHC.OFFWIV ---
Intake Vital Signs 04/16/24 10:46 Weight 220 lb BP 122/80 Blood Pressure Location Rt brachial Position Sitting Pulse 104 H Pulse Source Pulse Oximeter Temp 98.6 F Temp Source Oral Pulse Oximetry (%) 96 Oxygen Delivery Method Room Air Intake Visit Reasons: EP sore throat, cough, ears clogged, fatigue Intake Note: Patient here for sore throat, congestion, cough, runny nose, bilat ear pain and fatigue that started Tuesday. Patient Tobacco Use Status: Former Tobacco user Allergies No Known Allergies Allergy (Verified 04/16/24 10:46) Do you need a note to return to daycare/school/sports/work: No HPI EP sore throat, cough, ears clogged, fatigue HPI Details This note is constructed using voice recognition software. While every effort has been made to ensure accuracy, business analysis professional errors may have been included. The patient is a 43 year old male who presents to the clinic today with cough, sore throat, ear clogged for the past 4 days. He denies fever, chills, shortness of breath, body aches. He took Tylenol for his sore throat which seemed to help a little bit. He has not taken anything for his other symptoms. He has no known sick contacts. 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 Current occupational exposures/hazards: No Cognitive needs: No Hearing needs: No Vision needs: Yes (patient wears glasses) Review of Systems Const All systems reviewed & are unremarkable except as noted in HPI and below Physical Exam Vital Signs: Last Vital Signs Temp 98.6 F 04/16/24 10:46 Pulse 104 H 04/16/24 10:46 BP 122/80 04/16/24 10:46 Pulse Ox 96 04/16/24 10:46 Oxygen Delivery Method Room Air 04/16/24 10:46 Const General: cooperative, healthy appearing, comfortable and no acute distress Orientation/consciousness: patient oriented x3 Limitations: no limitations HEENT Head: Yes normal to inspection Ears: hearing grossly normal bilaterally, external ears normal and TM's normal bilaterally General nose exam: Normal external nose present, Normal nares present and No nasal discharge present Face and sinus: Yes normal facial exam and Yes sinuses nontender Mouth: Normal oral and palatal mucosa present and moist mucous membranes Throat: Yes tonsils normal, Yes uvula midline and Yes posterior oropharynx abnormal (Erythema) Eyes General: appearance normal, both eyes and all related structures Neck Neck: Yes normal visual inspection Resp Effort & Inspection: normal respiratory effort, able to speak in complete sentences, Actively coughing, no respiratory distress, not tachypneic, no tripod positioning and no use of accessory muscles Auscultation: clear to auscultation bilaterally Cardio Jugular venous distension: no JVD Rate: regular rate Rhythm: regular rhythm Heart sounds: S1 normal heart sound present, S2 normal heart sound present, no click, no gallops, no murmurs and no rubs Skin General skin exam: no rashes or lesions noted, elasticity normal and turgor normal Neuro General: patient oriented x3 Extrem General: Yes normal to inspection and Yes no clubbing, cyanosis or edema Results AMB Rapid Strep AMB Rapid Strep Negative Last Edit by VANITA Sue on 04/16/24 11:04 Assessment & Plan Assessment & Plan (1) URI (upper respiratory infection): Code(s): J06.9 - Acute upper respiratory infection, unspecified Qualifiers: URI type: unspecified URI Qualified Code(s): J06.9 - Acute upper respiratory infection, unspecified Plan: In office rapid strep negative. Viral swab obtained to rule out Covid, Influenza, and RSV based on symptoms. Advised mask wearing while symptomatic and quarantine per current CDC guidelines. Reviewed at home support methods including hydration, humidification, vix vapor rub, sinus rinse, and otc treatment options. Discussed treatment with antiviral therapy for covid with paxlovid and with Tamiflu for influenza, including appropriate use and side effects, and need to start medication within 5 day of symptom onset, preferably within 48 hours of symptom onset. Patient wishes to proceed with Tamiflu and decline paxlovid antiviral therapy. Advised follow up with worsening symptoms such as dyspnea at rest, which would require emergent evaluation. Plan See above for full details and plan. Orders: Orders AMB Rapid Strep Screen Today Z13.9 - Encounter for screening, unspecified SARS-CoV2/FLU/RSV Today J06.9 - Acute upper respiratory infection, unspecified Coding Level of Care Code Est Pt Level 3 (03966) Diagnoses Upper respiratory tract infection, unspecified type J06.9 URI type: unspecified URI
[2024-04-16 10:46] VITALS: BP 122/80; PULSE 104; TEMP 37; O2SAT 96
== END 2024-04-16 11:10 | disposition home or self-care (01) ==
PROVIDERS: PCP Nurse Practitioner Family; Visit Provider Registered Nurse
DX: J06.9 Acute upper respiratory infection, unspecified (principal); Z13.9 Encounter for screening, unspecified

== ENCOUNTER 2024-09-18 12:18 | Outpatient (AMB) | payer OTHER, SELFPAY ==
--- NOTE | 2024-09-18 12:21 | A.OFFPC_ITS ---
Vital Signs 09/18/24 12:28 09/18/24 12:34 Height 5 ft 10 in Weight 228 lb 2 oz BMI 32.7 BP 130/100 H 138/92 H Blood Pressure Location Lt brachial Lt brachial Position Sitting Sitting Pulse 91 Pulse Source Pulse Oximeter Temp 98.2 F Temp Source Temporal Artery Scan Pulse Oximetry (%) 97 Oxygen Delivery Method Room Air Intake Visit Reasons: Developed Anxiety Intake Note: Patient presents in the office today due to developing anxiety symptoms. Allergies Seasonal Allergies Allergy (Verified 09/18/24 12:41) Runny Nose Medication List - Last Reconciled 09/18/24 by Deann Wyman CNP No Known Home Meds Tobacco use date assessed: 09/18/24 Dental Screening Dental Screen Date: 09/18/24 Did you have a dental visit in the last 12 months?: Yes Did you have a dental problem in the last 6 months where you did not have access to dental care?: No Was dental information given to patient?: Patient has dentist HPI HPI Comments History of Present Illness Details 43-year-old male presents with complaint s of anxiety symptoms. 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 He has been experiencing pressure on the back of his head for about a week. He notes history of heavy drinking but significantly cut down for about a year. He started drinking heavily for the past 2 months. He notes that he drinks 3-4 beers on days, and 6-10 beers on Saturdays, and sometimes on Fridays He drank 8-10 beers last Tuesday, 4-5 beers last Tuesday, and 3-4 beers on Tuesday; he vomited twice this week. He felt lightheaded and lethargic while driving last week. He notes that he felt depressed last week due to nervousness. He denies history of anxiety and depression. No history of psychotropic medication. He denies head injury or trauma. 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 Current occupational exposures/hazards: No Cognitive needs: No Hearing needs: No Vision needs: Yes (patient wears glasses) Questionnaire PHQ-9 Over the last 2 weeks, how often have you been bothered by any of the following problems? 1. Little interest or pleasure in doing things: nearly every day 2. Feeling down, depressed, or hopeless: more than half the days 3. Trouble falling or staying asleep, or sleeping too much: more than half the days 4. Feeling tired or having little energy: more than half the days 5. Poor appetite or overeating: more than half the days 6. Feeling bad about yourself - or that you are a failure or have let yourself or your family down: more than half the days 7. Trouble concentrating on things, such as reading the newspaper or watching television: not at all 8. Moving or speaking so slowly that other people could have noticed. Or the opposite - being so fidgety or restless that you have been moving around a lot more than usual: more than half the days 9. Thoughts that you would be better off or of hurting yourself in some way: not at all Total score: 15 Depression Screening Interpretation: Positive Depression Screening Done: Yes 32196 - PHQ-9 Billing: Yes Source: Developed by Drs. Charli Paz, Danette Lemon, Ramsey Thompson and colleagues, with an educational leti from [employer]. Thrive Questionnaire Date Thrive assessed: 09/18/24 I am a: Patient What is your living situation today?: I have a steady place to live Within the past 12 months, did the food you bought not last and you didn't have the money to get more?: Never true Within the past 12 months, did you worry whether your food would run out before you got money to buy more?: Never true Do you have trouble paying for medicines?: No Do you have trouble getting transportation to medical appointments?: No Do you have trouble paying your heating and electricity bill?: No Do you have trouble taking care of your child, family member or friend?: No Do you have trouble with day-to-day activities such as bathing, preparing meals, shopping, managing finances, etc.?: No Are you currently unemployed and looking for a job?: No Are you interested in more education?: No Please select the resources that you would like help with: None Currently or been in a relationship where the following occur: No concerns reported THRIVE Score: 0 AUDIT C Alcohol Use Questionnaire (AUDIT-C) 1. How often do you have a drink containing alcohol?: 4 or more times a week 2. How many drinks containing alcohol do you have on a typical day when you are drinking?: 3 or 4 3. How often do you have six or more drinks on one occasion?: Weekly Total Score: 8 SASHA-7 AMB Questionnaire SASHA-7 Date SASHA - 7 assessed: 09/18/24 Feeling nervous, anxious, or on edge: 2 = More than half the days Not being able to stop or control worryin = More than half the days Worrying too much about different things: 2 = More than half the days Trouble relaxin = More than half the days Being so restless that it is hard to sit still: 0 = Not at all Becoming easily annoyed or irritable: 1 = Several days Feeling afraid as if something awful might happen: 2 = More than half the days Total SASHA-7 score (0-4 normal; 5-9 mild; 10-14 moderate; 15-21 severe): 11 Source: Developed by Drs. Charli Paz, Danette Lemon, Ramsey Thompson and colleagues, with an educational leti from [employer]. SASHA-7 Assessment Billing SASHA-7 Assessment Tool: SASHA-7 Assessment 28347 Review of Systems Const Details: Const Denies chills, Denies fatigue, Denies fever(s), Denies headache(s) and Denies weakness ENT Denies dizziness and Denies headache(s) Card Denies chest pain, Denies lightheadedness, Denies dyspnea and Denies other (Palpitations) Resp Denies cough, Denies dyspnea, Denies wheezing and Denies other ( shortness of breath) GI Denies abdominal pain, Denies melena, Denies hematochezia, Denies change in bowel habits, Denies dyspepsia and Denies nausea Denies hematuria and Denies dysuria Musc Denies abnormal gait, Denies myalgias, Denies arthralgias, Denies numbness and Denies tingling Skin/Breast Denies rash, Denies unusual bruising and Denies wounds Neuro Denies abnormal gait, Denies dizziness, Denies headache(s), Denies memory loss, Denies numbness, Denies Sensory deficit (Neuro), Denies tingling and Denies weak ness Psych Reports anxiety, Reports depression, Denies memory loss Endo Denies cold intolerance, Denies fatigue, Denies heat intolerance, Denies polyd ipsia and Denies polyuria Aller/Immun Denies wheezing Physical exam (Primary Care) Vital Signs: Last Vital Signs Temp 98.2 F 09/18/24 12:28 Pulse 91 09/18/24 12:28 BP 138/92 H 09/18/24 12:34 Pulse Ox 97 09/18/24 12:28 Oxygen Delivery Method Room Air 09/18/24 12:28 BMI result Body Mass Index 32.7 Tobacco/Smoking Status: Tobacco use Status Tobacco use date assessed 09/18/24 09/18/24 12:33 Patient Tobacco Use Status Former Tobacco user 09/18/24 12:28 e-Cigarette/Vaping Use Former Use 09/18/24 12:28 PHQ-9: PHQ-9 Score PHQ-9: Total score 15 09/18/24 12:33 Depression Screening Interpretation: Positive Thrive Assessment: Date of Thrive Assessment Date Thrive assessed 09/18/24 09/18/24 12:33 Currently or been in a relationship where the following occur: No concerns reported Const Other: General: no acute distress and well developed Nutritional Appearance: well nourished Orientation/consciousness: patient oriented x3 HENMT Head: Yes normocephalic and Yes atraumatic Eyes General: appearance normal, both eyes and all related structures Pupils: Equal, round and reactive pupils present EOM: EOMs intact bilaterally Resp Effort & Inspection: normal respiratory effort Auscultation: clear to auscultation bilaterally Cardio Rate: regular rate Rhythm: regular rhythm Heart sounds: S1 normal heart sound present, S2 normal heart sound present, no gallops, no murmurs and no rubs GI Palpation (GI): No Abdominal aortic bruit present, Soft to palpation, nontender, No hepatosplenomegaly present and No Rebound tenderness present Auscultation: normal bowel sounds General: Yes no CVA tenderness Back/Spine/Pelvis Back: no CVA tenderness Cervical Spine: cervical ROM normal and No Cervical spine tenderness Thoracic/Lumbar Spine: thoraco-lumbar ROM normal, No pain with thoraco-lumbar ROM, No thoracic spinal tenderness and No lumbar spinal tenderness Extrem General: Yes normal to inspection, No edema and No calf tenderness Skin General: warm and dry. Normal skin color. Normal skin turgor Neuro General: patient oriented x3, gait normal and no focal neuro deficit Cranial nerves: Yes Equal, round and reactive pupils present Cognition (Neuro): normal cognition Gait exam (Neuro): Normal gait present Sensory Exam: No Sensory deficit (Neuro) Psych Appearance: grossly normal Affect: normal affect Attitude: cooperative Thought process: Normal thought process present Coding Level of Care Code Est Pt Level 4 (60672) Diagnoses Anxiety and depression F41.9; F32.A Alcohol use disorder F10.90 Elevated blood pressure reading without diagnosis of hypertension R03.0 Additional Codes SASHA-7 Assessment Billing - SASHA-7 Assessment Tool: SASHA-7 Assessment 69250 ([id number]) PHQ-9 - 79835 - PHQ-9 Billing: Yes ([id number]) Assessment & Plan Assessment & Plan (1) Anxiety and depression: Code(s): F41.9 - Anxiety disorder, unspecified; F32.A - Depression, unspecified Category: Medical Plan: He notes 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 He has been experiencing pressure on the back of his head for about a week. He notes history of heavy drinking but significantly cut down for about a year. He started drinking heavily for the past 2 months. He notes that he drinks 3-4 beers on weekdays, and 6-10 beers on Saturdays, and sometimes on Fridays He drank 8-10 beers last Tuesday, 4-5 beers last Tuesday, and 3-4 beers on Tuesday; he vomited twice this week. He felt lightheaded and lethargic while driving last week. He notes that he felt depressed last week due to nervousness. He denies history of anxiety and depression. No history of psychotropic medication. He denies head injury or trauma. PHQ-9 and SASHA-7 scores revealed moderately severe depression and moderate anxiety respectively. His anxiety likely due to excessive alcohol intake. Declines referral to [facility] [place] comprehensive care at this time and notes that he will cut down on drinking. Instructed on the health risks and complications of excessive alcohol intake and encouraged to significantly cut down or avoid drinking. No more than 2 drinks daily or 5 drinks weekly. Healthy diet and routine exercise encouraged. Follow-up with worsening or new symptoms. Verbalized understanding and agreed with treatment plan. (2) Alcohol use disorder: Code(s): F10.90 - Alcohol use, unspecified, uncomplicated Category: Medical Plan: Plan as above. (3) Elevated blood pressure reading without diagnosis of hypertension: Code(s): R03.0 - Elevated blood-pressure reading, without diagnosis of hypertension Category: Medical Plan: Resting blood pressure is 138/92, slightly above goal of less than 140/90. Likely related to excessive alcohol intake. Encouraged to cut down or avoid drinking alcohol. Low-sodium diet encouraged. Follow-up with symptoms or concerns. Verbalized understanding and agreed with the plan.
[2024-09-18 12:28] VITALS: BP 130/100; PULSE 91; TEMP 36.8; O2SAT 97; BMI 32.7
[2024-09-18 12:34] VITALS: BP 138/92
== END 2024-09-18 13:05 | disposition home or self-care (01) ==
LOC: HO.HMCFM 12:19
PROVIDERS: PCP Nurse Practitioner Family; Visit Provider Nurse Practitioner Family
DX: F41.9 Anxiety disorder, unspecified (principal); F32.A Depression, unspecified; F10.90 Alcohol use, unspecified, uncomplicated; R03.0 Elevated blood-pressure reading, without diagnosis of hypertension

== ENCOUNTER → 2024-09-18 12:18 | Outpatient (BNVA) | payer OTHER, SELFPAY | PROVIDERS: PCP Nurse Practitioner Family; Visit Provider Nurse Practitioner Family | DX: R03.0 Elevated blood-pressure reading, without diagnosis of hypertension (principal); F41.9 Anxiety disorder, unspecified; F32.A Depression, unspecified; F10.90 Alcohol use, unspecified, uncomplicated; Z56.3 Stressful work schedule | CPT/HCPCS: 96127 ==